=== PATIENT | male | born 1965 | race Caucasian/White ===

== ENCOUNTER 2018-11-14 00:20 | Emergency (ER) | payer MEDICAID ==
[~2018-11-14] VITALS: Ht 172.7 cm; Wt 120.2 kg
[2018-11-14 00:25] VITALS: BP_SYST 145
--- NOTE | 2018-11-14 00:29 | NUR ---
Patient to ER bed 6 to gown for evaluation. Side rails up. Report given to Kareem SALDANA.
--- NOTE | 2018-11-14 00:48 | NUR ---
ER at bedside examining patient.
--- NOTE | 2018-11-14 01:20 | NUR ---
Patient given written and verbal discharge instructions and verbalizes understanding. ER MD discussed with patient the results and treatment provided. Patient in stable condition. ID arm band removed. Rx of motrin 800mg given. Patient educated on pain management and to follow up with PMD. Pain Scale 6/10. Opportunity for questions provided and answered. Medication side effect fact sheet provided.
[2018-11-14 01:21] VITALS: BP_SYST 135
== END 2018-11-14 01:21 | disposition home or self-care (01) ==
LOC: SED 00:20
DX: S80.11XA Contusion of right lower leg, initial encounter (principal); Z88.2 Allergy status to sulfonamides; W22.8XXA Striking against or struck by other objects, initial encounter; Y93.89 Activity, other specified; Y92.488 Other paved roadways as the place of occurrence of the external cause; Y99.8 Other external cause status
CPT/HCPCS: 73590-TC; 99283

== ENCOUNTER 2023-07-16 06:11 | Emergency (ER) | payer MEDICAID ==
[~2023-07-16] VITALS: Ht 177.8 cm; Wt 133.8 kg
[2023-07-16 06:29] VITALS: BP_SYST 182; PULSE 98; RESP 16; TEMP 98.1; O2SAT 97
[2023-07-16] MEDS ORDERED: NEOM28.37 TP (06:47)
[2023-07-16 07:05] VITALS: BP_SYST 158; PULSE 89; RESP 20; TEMP 98.1; O2SAT 96
== END 2023-07-16 07:05 | disposition home or self-care (01) ==
LOC: SED 06:11
DX: N48.22 Cellulitis of corpus cavernosum and penis (principal); Z88.2 Allergy status to sulfonamides; Z79.899 Other long term (current) drug therapy
CPT/HCPCS: 99283